=== PATIENT | male | born 1995 | race African-American/Black ===

== ENCOUNTER 2017-12-16 02:59 | Emergency (ER) | payer BC, OTHER ==
[~2017-12-16] VITALS: Ht 188 cm; Wt 90.7 kg
[2017-12-16 03:24] LABS: HEMOGLOBIN 15.6 gm/dL (14.0-18.0); MCH 30.7 pg (26.0-34.0); MCV 90.1 fL (80.0-100.0); RBC 5.1 mil/uL (4.50-6.00); RDW 13.9 % (10.5-14.5)
[2017-12-16 03:34] LABS: CALCIUM 9.2 mg/dL (8.5-10.1); CREATININE 1.2 mg/dL (0.7-1.3)
[2017-12-16] MEDS ORDERED: ONDANSETRON HCL4 M2 PO (03:34)
[2017-12-16 03:39] LABS: ALBUMIN 4.6 g/dL (3.4-5.0); TOTAL PROTEIN 7.8 g/dL (6.4-8.2)
== END 2017-12-16 04:41 | disposition home or self-care (01) ==
LOC: ER 02:59
PROVIDERS: Emergency Medicine
DX: R11.2 Nausea with vomiting, unspecified (principal); R10.13 Epigastric pain